=== PATIENT | female | born 1970 | race Caucasian/White ===

== ENCOUNTER → 2019-07-19 | Outpatient (CLI) | payer OTHER ==
--- NOTE | 2019-07-19 22:50 | Diagnostic Imaging Report ---
INDICATION: Routine screening. No prior mammograms are available for comparison. 2-D and 3-D bilateral screening mammography was performed. The current study was also evaluated with a Computer Aided Detection (CAD) system. 3-D Tomographic imaging was also performed. FINDINGS: Both breasts are heterogeneously dense, limiting the sensitivity of mammography. There is a fairly well-circumscribed ovoid nodule in the lower outer aspect of the left breast posterior depth. No other masses are seen. There are benign calcifications bilaterally. No malignant-appearing microcalcifications are seen. The axillae are unremarkable. IMPRESSION: Circumscribed nodule in lower outer left breast posterior depth. Additional views and ultrasound are recommended for further evaluation. ACR BI-RADS Category 0: Incomplete. (Needs additional imaging evaluation). Result letter will be mailed to the patient. Note: At least 10% of breast cancer is not imaged by mammography. Dictated by: Dictated on workstation # [id number]
== END ==
LOC: MERGE 09:51 → RAD 09:51
PROVIDERS: ATTEND Nurse Practitioner
DX: Z12.31 Encounter for screening mammogram for malignant neoplasm of breast (principal); N63.23 Unspecified lump in the left breast, lower outer quadrant
CPT/HCPCS: 77067

== ENCOUNTER → 2019-07-29 | Outpatient (CLI) | payer OTHER ==
--- NOTE | 2019-07-29 15:51 | Diagnostic Imaging Report ---
INDICATION: Left breast density. Patient presents for additional views. COMPARISON: 07/19/2019. TECHNIQUE: Unilateral left 2D and 3D diagnostic mammography was performed including spot compression CC and ML views as well as conventional 90 degree lateral view. FINDINGS: Additional views confirm the presence of an ovoid circumscribed nodule in the lower outer left breast approximately 7 cm from the nipple. This measures approximately 12 mm x 8 mm in size. Scattered benign calcifications are noted. IMPRESSION: Circumscribed ovoid nodular density in the lower outer left breast at posterior depth. Further evaluation with ultrasound is recommended and will be performed today. ACR BI-RADS Category 0: Incomplete. (Needs additional imaging evaluation). Result letter will be mailed to the patient. Note: At least 10% of breast cancer is not imaged by mammography. Dictated by: Dictated on workstation # [id number]
--- NOTE | 2019-07-29 15:54 | Diagnostic Imaging Report ---
INDICATION: Left breast density. COMPARISON: Correlation is made with the diagnostic mammogram from earlier this same day and the screening mammogram from 07/19/2019. FINDINGS: Sonographic interrogation of the lower outer left breast was performed. There is a circumscribed ovoid mass measuring 12 mm x 5 mm x 11 mm at the 4 o'clock location 6 cm from the nipple. This is most consistent with a cyst. There does have a thin internal septation. No internal vascularity is seen. A second tiny cyst at the 3 o'clock location is noted 3 cm from the nipple measuring approximately 3 mm in size. No other significant abnormality is seen. IMPRESSION: Left breast cyst accounting for the mammographic density. The patient may return to routine annual screening mammography. ACR BI-RADS Category 2: Benign findings. Dictated by: Dictated on workstation # [id number]
== END ==
LOC: RAD 13:30
DX: N60.02 Solitary cyst of left breast (principal); R92.2 Inconclusive mammogram
CPT/HCPCS: 76642

== ENCOUNTER → 2021-01-19 | Outpatient (CLI) | payer OTHER ==
--- NOTE | 2021-01-19 12:18 | Diagnostic Imaging Report ---
INDICATION: Routine screening. COMPARISON: 07/19/2019. TECHNIQUE: 2D and 3D bilateral screening mammography was performed with CAD. FINDINGS: Both breasts are heterogeneously dense, limiting the sensitivity of mammography. An ovoid circumscribed nodule in the lower outer left breast at posterior depth appears stable. No new mass or malignant appearing microcalcifications are seen. There are benign calcifications in both breasts. The axillae are unremarkable. IMPRESSION: No mammographic features suspicious for malignancy are identified. ACR BI-RADS Category 2: Benign findings. Result letter will be mailed to the patient. Note: At least 10% of breast cancer is not imaged by mammography. Dictated by: Dictated on workstation # [id number]
== END ==
LOC: RAD 07:45
PROVIDERS: ATTEND Nurse Practitioner Family
DX: Z12.31 Encounter for screening mammogram for malignant neoplasm of breast (principal)
CPT/HCPCS: 77063; 77067

== ENCOUNTER 2022-07-04 19:01 | Emergency (ER) | payer OTHER ==
[~2022-07-04] VITALS: Ht 170.2 cm; Wt 70.3 kg
[2022-07-04 19:08] VITALS: BP 143/74
[2022-07-04] MEDS ORDERED: KETOROLAC 60 MG/2 ML VIAL IM ONE (20:00)
[2022-07-04] MEDS ORDERED: ORPHENADRINE 60 MG/2 ML (NORFLEX) AMP (ED ONLY) IM ONE (20:00)
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
[2022-07-04] MEDS ORDERED: METH-732 PO (20:29)
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
== END 2022-07-04 21:00 | disposition home or self-care (01) ==
LOC: EDUNIT# 19:01 → ER 19:02
DX: S39.012A Strain of muscle, fascia and tendon of lower back, initial encounter (principal); V49.9XXA Car occupant (driver) (passenger) injured in unspecified traffic accident, initial encounter; Y92.410 Unspecified street and highway as the place of occurrence of the external cause
CPT/HCPCS: 72131